=== PATIENT | male | born 1985 | race Caucasian/White ===

== ENCOUNTER 2020-09-30 07:04 | Outpatient (REF) | payer OTHER, SELFPAY | END 2020-09-30 07:05 | disposition home or self-care (01) | LOC: HO.LAB 07:04 | PROVIDERS: Visit Provider Internal Medicine | DX: Z20.828 Contact with and (suspected) exposure to other viral communicable diseases (principal) | CPT/HCPCS: C9803; U0003 ==

== ENCOUNTER 2022-02-26 13:51 | Outpatient (REF) | payer OTHER, SELFPAY ==
--- NOTE | ~2022-02-26 | XR_ITS ---
EXAMINATION: X-RAY LEFT WRIST. CLINICAL INFORMATION: Pain. COMPARISON: No similar priors. TECHNIQUE: 5 views of the left wrist. FINDINGS: No acute fractures or malalignment. Carpal rows maintained. The scapholunate interval is within normal limits. No significant degenerative changes. No erosions or chondrocalcinosis. Mild nonspecific diffuse soft tissue swelling. XR/XR wrist LT w scaphoid IMPRESSION: No acute osseous abnormalities. No significant osteoarthritis.
== END 2022-02-26 13:52 | disposition home or self-care (01) ==
LOC: HO.HOSX 13:51
PROVIDERS: PCP Internal Medicine; Visit Provider Orthopaedic Surgery
DX: S62.152A Displaced fracture of hook process of hamate [unciform] bone, left wrist, initial encounter for closed fracture (principal); M79.641 Pain in right hand; X58.XXXA Exposure to other specified factors, initial encounter; Y93.9 Activity, unspecified; Y92.9 Unspecified place or not applicable; Y99.9 Unspecified external cause status
CPT/HCPCS: 73110

== ENCOUNTER 2022-03-15 18:00 | Outpatient (REF) | payer OTHER, SELFPAY ==
--- NOTE | ~2022-03-15 | MR_ITS ---
EXAMINATION: MRI WRIST WITHOUT CONTRAST, LEFT CLINICAL INFORMATION: Left hand/wrist pain. Evaluate for hook of hamate and surrounding structures. COMPARISON: Left wrist radiographs dated 02/26/2022. TECHNIQUE: Multisequence MR imaging of the left wrist was obtained without contrast on a high-field strength scanner. FINDINGS: TRIANGULAR FIBROCARTILAGE: Attenuation and irregularity through the central radial aspect of the triangular fibrocartilage complex without a definite measurable full-thickness defect. INTRINSIC LIGAMENTS: Grossly intact. TENDONS/MEDIAN NERVE: Mild edema within the carpal tunnel adjacent to the common flexor tendons which is likely reactive to the adjacent osseous pathology. ARTICULAR CARTILAGE/BONE: Nondisplaced, transverse fracture through the base of the hook of the hamate with a fracture gap measuring up to 0.3 cm in AP dimension. Prominent adjacent marrow and soft tissue edema. No additional fracture. Degenerative cystic change along the ulnar aspect of the triquetrum with a ganglion cyst measuring up to 1.0 cm in AP dimension. Degenerative cystic change along the volar aspect of the distal radioulnar joint with small marginal osteophytes. JOINT FLUID/SOFT TISSUES: No significant joint effusion. MR/MR wrist LT wo con IMPRESSION: 1. Mildly displaced, transverse fracture through the base of the hook of the hamate with a fracture gap measuring up to 0.3 cm. Prominent adjacent marrow and soft tissue edema. 2. Mild edema within the carpal tunnel likely reactive to the adjacent osseous pathology. 3. Degenerative undersurface tearing through the radial aspect of the triangular fibrocartilage complex without a definite full-thickness defect. Degenerative arthritis at the volar aspect of the distal radioulnar joint. 4. Degenerative cystic change adjacent to the triquetral bone with a ganglion cyst measuring up to 1.0 cm.
== END 2022-03-15 18:01 | disposition home or self-care (01) ==
LOC: HO.MRI 18:00
PROVIDERS: Visit Provider Orthopaedic Surgery
DX: M25.532 Pain in left wrist (principal)
CPT/HCPCS: 73221

== ENCOUNTER 2022-04-18 06:01 | Day surgery (SDC) | payer OTHER, SELFPAY ==
--- NOTE | 2022-04-17 10:20 | HO.ANESPROP2 ---
Documented by User: Candy Gallo NP 04/17/22 10:21 HPI - Anesthesia Eval Consult details Narrative: 36yo M for Left Hook Hamate of excision PMFSH Active Problems Active Problems: All Active Problems (Updated 02/26/22 @ 15:21 by Suzanna Coffman MD) Closed fracture of hook of left hamate bone (Acute) Surgical History Surgical History (Updated 04/18/22 @ 06:32 by Shelly Tracey RN) [place] teeth extracted Social History Social History (Updated 02/26/22 @ 14:26 by Rochelle Johnson CMA) Substance Use Type: Marijuana Current occupational status: employed Meds Allergies Allergy/AdvReac Type Severity Reaction Status Date / Time prednisone [PREDNISONE] Allergy Mild RASH Verified 04/18/22 06:32 Exam Exam Date and Time: April 17, 2022 1020 Assessment and Plan Assessment Anesthesia Assessment: Chart Reviewed Documented by User: Walter Orozco MD 04/18/22 16:34 HPI - Anesthesia Eval Consult details Narrative: 36yo M for Left Hook Hamate of excision obesity PMFSH Family History Family history of problems with anesthesia: No Surgical History Surgical History (Updated 04/18/22 @ 06:32 by Shelly Tracey RN) [place] teeth extracted History of Problems with Anesthesia: No Social History Social History (Updated 02/26/22 @ 14:26 by Rochelle Johnson CMA) Substance Use Type: Marijuana Current occupational status: employed Meds Allergies Allergy/AdvReac Type Severity Reaction Status Date / Time prednisone [PREDNISONE] Allergy Mild RASH Verified 04/18/22 06:32 Exam Airway Mallampati Class: III TM Dist: >3cm Neck ROM: Full Loose/Missing/Broken Teeth: Yes (Multiple chipped teeth. Poor dentition ) Heart: S1,S2 Lungs: b/l breath sounds Assessment and Plan Assessment Anesthesia Assessment: Anesthesia Plan Discussed Final Anesthetic Review Family History of Problems with Anesthesia: No History of Problems with Anesthesia: No NPO: Yes ASA Class: II Final Preanesthetic Review: Meds/Allgs Chart Reviewed, Consent Obtained/Reviewed and Anes Risks/Benef Reviewed Patient Risk: Intermediate Procedure Risk: Intermediate Anesthetic Plan Anesthetic Plan: GA Disposition: Standard PACU
[2022-04-18] VITALS (13 sets, daily range): BP systolic 112–145; BP diastolic 50–74; PULSE 53–111; RESP 18–28; TEMP 36.3–36.8; O2SAT 92–99; BMI 35.2
[2022-04-18] MEDS: Lactated Ringers 1,000 ML 100 ML IVCONT (06:30)
--- NOTE | 2022-04-18 12:38 | MHC.SHP ---
Pre-Procedural Eval Section A Date of Service: 04/18/22 The patient is an INPATIENT: No Changes since office visit: No Cold of Flu in the past 2 weeks, No New Medical Problems, No Changes in Medication and No Patient answered all questions The History & Physical has been completed within 30 days and I have reviewed it.: Yes Section B Chief Complaint: Displaced fracture of hook process of hamate Allergies: Allergies Allergy/AdvReac Type Severity Reaction Status Date / Time prednisone [PREDNISONE] Allergy Mild RASH Verified 04/18/22 06:32 Plan I have reviewed the history and physical and performed a pertinent physical examination on my patient. No changes have occurred unless specified.
--- NOTE | 2022-04-18 12:38 | W.PM.OPN ---
Operative Note Operative Note Date of Service: 04/18/22 Narrative: Operative Note Narrative: Preop diagnosis: 1. Left hook of hamate fracture nonunion Postop diagnosis: Same Procedure: 1. Left took of hamate fracture excision of nonunion fragment 2. Left ulnar nerve neurolysis through Guyon's canal and into the hand Surgeon: Suzanna Coffman MD Anesthesia: General Anesthesia Findings: Hook of hamate fracture nonunion Implants: None Tourniquet time: 110 minutes EBL: 5.0 ml Specimen: Hook of hamate Drains: None Complications: None Disposition: Brought to the recovery room in stable condition Plan: Follow-up in 10-14 days for wound check, suture removal and to check pathology Patient should wear a weightlifting glove or bicycling glove to protect the pad of his palm for the next few weeks Nothing heavier than a cell phone for the next 4 weeks No golf for at least 8-12 weeks Indications: The patient is a 36 year old man with a left hook of hamate fracture nonunion . The risks and benefits of operative treatment, including but not limited to risk of damage to blood vessels, nerves, tendons, infection, recurrence, persistent pain or numbness, incomplete resolution of preoperative symptoms, or need for further surgery were discussed with the patient and they wished to proceed with surgery. Procedure: Once consent was obtained patient was brought back to the operating suite and placed in the operating table in a supine position. . Perioperative antibiotics and anesthesia was administered by the anesthesia team. A tourniquet was applied to the proximal aspect of the left upper extremity and the limb was prepped and draped in a standard surgical fashion. The limb was elevated exsanguinated with Esmarch bandage and the tourniquet inflated to 250 mm of mercury for a total tourniquet time of 110 minutes. A 1.5 cm longitudinal incision was made over the radial aspect of the FCU tendon this then was extended transversely by 1 cm and then a gently curved longitudinally oriented incision was continued distally over the hypothenar eminence passing over the hook of the hamate. The incision was made through the skin to the subcutaneous tissues using a 15. Blade. Careful dissection was then made down to the level of the volar forearm fascia and this was incised longitudinally just radial to the FCU tendon in a proximal to distal direction. The ulnar artery and ulnar nerve were identified, and the soft tissue was carefully mobilized off of these structures in a proximal to distal direction freeing up the subcutaneous fat and then longitudinally incising the fascial layer. The ulnar artery and nerve passed just radial to the pisiform and were rather superficial. The palmaris brevis muscle bellies were incised longitudinally radial to the neurovascular bundle and then retracted ulnarly further exposing our neurovascular bundle. Just past the pisiform we can see the motor branch of the ulnar nerve start to passed deeply and in an ulnar direction, where as the superficial branches of the ulnar nerve passed distally and could be seen passing in a distal direction as the digital nerves to the small finger and 4th web space. The ulnar nerve including the motor branch, and the ulnar artery were carefully freed from the surrounding tissues to facilitate mobilization away from the hook of the hamate fragment and protection while for freeing up the hook of the hamate fragment. The ulnar artery lay atop the nerve in this area. The ulnar nerve and artery were gently retracted ulnarly as I exposed the transverse carpal ligament deep to these structures. I could palpate where the transverse carpal ligament was attached to the pisiform, and just distal and radial to this where was attached to the hook of the hamate. The motor branch to the ulnar nerve was carefully mobilized where it passed ulnar to the hook of the hamate and was curving around it distally. This was carefully protected during the case. I then made a longitudinal incision extending from the hook of the hamate, proximally through the transverse carpal ligament for a distance of about 1 cm. This then allowed me to carefully free up the transverse carpal ligament from its attachment to the tip of the hook of the hamate. This was done very carefully and subperiosteally using tenotomy scissors and iris scissors. Circumferentially, and subperiosteally the ligamentous attachment was detached from the hook of the hamate. At this point we could feel that the fracture fragment was loosening. A [place] elevator was passed into the fracture at the proximal aspect of the nonunion and gently used to lever the nonunion site. Once the fragment of the hook of the hamate was sufficiently released I was then able to grasp it with a small rongeur,being sure to protect the motor branch of the ulnar nerve ulnarly and distally, and then superficially we have retracted the ulnar artery and the more superficial branches of the ulnar nerve. I Was then able to gently twist and remove the hook of the hamate fragment. It was then placed on the table to be sent to histopathology. A rasp was used to ensure there were no sharp areas of bone at our nonunion site. The ulnar artery, ulnar nerve including the motor branch in superficial branches were evaluated and seen to be in good condition. At this point the wound was irrigated with normal saline. At this point the tourniquet was deflated and hemostasis obtained with a brief period of local pressure and bipolar electrocautery. The wound was copiously irrigated with normal saline. The skin edges were reapproximated with 4-0 and 5-0 nylon suture. The wound was infiltrated with some 1% lidocaine with epinephrine for postop pain control and a sterile dressing and short volar splint was applied. The patient appears to have tolerated the procedure well and with no complications. All digits were well vascularized conclusion of the case.
== END 2022-04-18 14:52 | disposition home or self-care (01) ==
PROVIDERS: PCP Internal Medicine; Visit Provider Orthopaedic Surgery
PROC: (CPT 25645; principal; 2022-04-18 07:30)
DX: S62.152A Displaced fracture of hook process of hamate [unciform] bone, left wrist, initial encounter for closed fracture (principal); X58.XXXA Exposure to other specified factors, initial encounter; Y93.53 Activity, golf; Y92.9 Unspecified place or not applicable; Y99.8 Other external cause status; F12.90 Cannabis use, unspecified, uncomplicated; Z88.8 Allergy status to other drugs, medicaments and biological substances
CPT/HCPCS: 25645; 64719; 88305; 88311; J0171; J0690; J1100; J1170; J1200; J1885; J2250; J2405; J2550; J2795; J3010

== ENCOUNTER 2022-08-07 13:52 | Outpatient (REF) | payer OTHER, SELFPAY ==
--- NOTE | 2022-08-07 08:30 | EMG_ITS ---
IMPRESSION: Moderately severe carpal tunnel syndrome on the right. EMG of the right C5 through T1 innervated muscles consistent with mild chronic denervated changes in the abductor pollicis brevis muscle consistent with median neuropathy. MD ESTHER Donis/FERMIN / [id number]
== END 2022-08-07 13:53 | disposition home or self-care (01) ==
LOC: HO.NEURO 13:52
PROVIDERS: PCP Internal Medicine; Visit Provider Orthopaedic Surgery
DX: R20.0 Anesthesia of skin (principal); R20.2 Paresthesia of skin
CPT/HCPCS: 95885; 95910

== ENCOUNTER 2022-09-16 11:55 | Day surgery (SDC) | payer OTHER, SELFPAY ==
[2022-09-16 12:16] VITALS: BMI 35.2
--- NOTE | 2022-09-16 13:45 | MHC.SHP ---
Pre-Procedural Eval Section A Date of Service: 09/16/22 The patient is an INPATIENT: No Changes since office visit: No Cold of Flu in the past 2 weeks, No New Medical Problems, No Changes in Medication and No Patient answered all questions The History & Physical has been completed within 30 days and I have reviewed it.: Yes Section B Chief Complaint: Carpal tunnel syndrome, right upper limb Allergies: Allergies Allergy/AdvReac Type Severity Reaction Status Date / Time prednisone [PREDNISONE] Allergy Mild RASH Verified 09/04/22 09:47 Plan I have reviewed the history and physical and performed a pertinent physical examination on my patient. No changes have occurred unless specified. Time Spent With Patient Time: Total time managing care of this patient today ____ minutes.
--- NOTE | 2022-09-16 13:45 | W.PM.OPN ---
Operative Note Operative Note Date of Service: 09/16/22 Narrative: Preop diagnosis: 1. Right Carpal tunnel syndrome Postop diagnosis: same Procedure: 1. Right Carpal tunnel release Surgeon: Suzanna Coffman MD Anesthesia: local block using 1% lidocaine with epinephrine Findings: Thickened transverse carpal ligament. EBL: Less than 5 mL Specimens: None Complications: None Disposition: Brought to recovery room in stable condition Plan: Follow-up for 10-14 days for wound check and suture removal Indications: The patient is 36 years old, with right carpal tunnel syndrome that has been unresponsive to nonoperative management. The risks and benefits of operative treatment including but not limited to risk of damage to blood vessels, nerves, tendons, infection, persistent pain, persistent symptoms, or possible need for additional surgery were discussed with the patient and the patient wishes to proceed with surgery. Procedure: Once consent was obtained a local block was performed using a combination of 1% lidocaine with epinephrine. The patient was then brought back to the operating suite and placed on the operative table in supine position. A tourniquet was applied to the proximal aspect of the right upper extremity and the limb was prepped and draped in a standard surgical fashion. Once assured that we had a good block, a 2.0 cm longitudinal incision was made centered over the carpal tunnel. The incision was made through the skin to the subcutaneous tissues using a #15 blade. Dissection was made down to the level of the transverse carpal ligament with care being taken to protect the palmar cutaneous nerve. Once the transverse carpal ligament was clearly visualized, a longitudinal incision was made in the transverse carpal ligament 1st using a #15 blade, then using tenotomy scissors under direct visualization. Care was taken to look for and protect the motor branch of the median nerve when seen in this area. Once satisfied with our carpal tunnel release the wound was copiously irrigated with normal saline and hemostasis was obtained with a brief period of local pressure. The skin edges were reapproximated with some 5.0 nylon suture material and a sterile dressing was applied. The patient appears to have tolerated the procedure well and with no complications. All digits were well vascularized at the conclusion of the case.
[2022-09-16 14:15] VITALS: BP 133/67; PULSE 61; RESP 16; O2SAT 96
== END 2022-09-16 14:24 | disposition home or self-care (01) ==
PROVIDERS: PCP Internal Medicine; Visit Provider Orthopaedic Surgery
PROC: (CPT 64721; principal; 2022-09-16 15:10)
DX: G56.01 Carpal tunnel syndrome, right upper limb (principal); R20.0 Anesthesia of skin; Z88.8 Allergy status to other drugs, medicaments and biological substances; Z98.890 Other specified postprocedural states
CPT/HCPCS: 64721; J0171

== ENCOUNTER → 2022-10-01 10:02 | Outpatient (BNVA) | payer OTHER, SELFPAY | PROVIDERS: PCP Internal Medicine; Visit Provider Orthopaedic Surgery | DX: G56.01 Carpal tunnel syndrome, right upper limb (principal) ==

== ENCOUNTER → 2023-01-21 14:28 | Outpatient (BNVA) | payer OTHER, SELFPAY | PROVIDERS: PCP Internal Medicine; Visit Provider Physician Assistant | DX: M79.642 Pain in left hand (principal); S62.152A Displaced fracture of hook process of hamate [unciform] bone, left wrist, initial encounter for closed fracture; Y93.53 Activity, golf | CPT/HCPCS: G0463 ==

== ENCOUNTER 2023-02-28 17:57 | Outpatient (REF) | payer OTHER, SELFPAY ==
--- NOTE | ~2023-02-28 | MR_ITS ---
EXAMINATION: MRI OF THE LEFT HAND WITHOUT CONTRAST CLINICAL INFORMATION: Displaced fracture of the hook process of the hamate. Painful from hamate status post excision of fragment to the A1 kelsea of the ring finger. COMPARISON: MRI of the left wrist February 2022 TECHNIQUE: MRI of the left hand is performed without contrast on a high-field MRI scanner. Imaging was performed from the distal carpal row to the tips of the fingers. FINDINGS: Ring finger: Ligaments, tendons, bone and joints all appear within normal limits. No arthrosis. No marrow abnormality. Remaining bone and joints throughout the hand normal. In the wrist there are postsurgical changes related to removal of hook of the hamate. There is some minimal edema within the hamate volar aspect. MR/MR hand LT wo con IMPRESSION: 1. No abnormality of the ring finger. 2. Postsurgical changes related to removal of the hamate. 3. Minimal edema within the hamate of uncertain significance. This could reflect bone contusion or residual edema related to the postsurgical change. Overall markedly decreased compared to prior MRI of February 2022.
== END 2023-02-28 17:58 | disposition home or self-care (01) ==
LOC: HO.MRI 17:57
PROVIDERS: Visit Provider Physician Assistant
DX: S62.152A Displaced fracture of hook process of hamate [unciform] bone, left wrist, initial encounter for closed fracture (principal)
CPT/HCPCS: 73218

== ENCOUNTER → 2023-03-26 10:20 | Outpatient (BNVA) | payer OTHER, SELFPAY | PROVIDERS: PCP Internal Medicine; Visit Provider Orthopaedic Surgery ==